=== PATIENT | female | born 1990 | race Two or more races ===

== ENCOUNTER 2016-05-19 03:10 | Emergency (ER) | payer SELFPAY ==
[2016-05-19] MEDS ORDERED: PRED50TA PO (13:38)
[2016-05-19] MEDS ORDERED: DIPH25CA58 PO (13:38)
== END 2016-05-19 03:51 | disposition left against medical advice (07) ==
LOC: ER 03:10
DX: R21 Rash and other nonspecific skin eruption (principal); L29.9 Pruritus, unspecified; Z53.21 Procedure and treatment not carried out due to patient leaving prior to being seen by health care provider

== ENCOUNTER 2016-05-19 11:24 | Emergency (ER) | payer SELFPAY ==
[~2016-05-19] VITALS: Ht 152.4 cm; Wt 72.6 kg
[2016-05-19 12:52] VITALS: BP 125/77
[2016-05-19] MEDS ORDERED: PRED50TA PO (13:38)
[2016-05-19] MEDS ORDERED: DIPH25CA58 PO (13:38)
--- NOTE | 2016-05-19 13:38 | PHYS DOC ---
Past Medical History Past Medical History: No Pertinent History Past Surgical History: No Surgical History Alcohol Use: None Drug Use: None Adult General Chief Complaint Chief Complaint: SKIN RASH/ABSCESS HPI HPI Patient is a 25 year old female who presents with rash. Patient reports that since yesterday morning she has had very itchy rash to her left face and abdomen. Rash started after she had spent the night at a friend's house, however no clear inciting event or new exposures (she denies any new soap, detergent, clothes, medications, food, pets, etc.). She came to the ED yesterday but left without being seen due to the wait. Patient has not taken anything for symptoms. No other acute complaints. Review of Systems Review of Systems Constitutional: Denies fever or chills Respiratory: Denies cough or shortness of breath Cardiovascular: Denies chest pain GI: Denies abdominal pain, nausea, vomiting, or diarrhea Musculoskeletal: Denies back pain or joint pain Skin: Rash to face and abdomen Neurologic: Denies headache, focal weakness or sensory changes Current Medications Current Medications Current Medications Medications (Trade) Dose Ordered Sig/Leon Start Time Stop Time Status Last Admin Dose Admin Diphenhydramine HCl (Benadryl) 50 mg 1X ONCE 05/19/16 13:45 05/19/16 13:45 DC 05/19/16 13:38 50 MG Prednisone (Prednisone) 50 mg 1X ONCE 05/19/16 13:45 05/19/16 13:45 DC 05/19/16 13:38 50 MG Allergies Allergies Allergies Coded Allergies Type Severity Reaction Last Updated Verified No Known Drug Allergies 05/19/16 No Physical Exam Physical Exam Constitutional: Well developed, well nourished, no acute distress, non-toxic appearance HENT: Normocephalic, atraumatic, bilateral external ears normal; urticarial rash mostly confined to L side of face; no oropharyngeal swelling, airway widely patent Neck: No stridor Eyes: EOMI, conjunctiva normal, no discharge Cardiovascular: Heart rate normal, regular rhythm, no murmur Lungs & Thorax: Bilateral breath sounds clear to auscultation Abdomen: Bowel sounds normal, soft, non-distended, no TTP Skin: Warm, dry. Urticarial rash to lower abdomen b/l Extremities: No obvious deformity, no edema Neurologic: Alert and oriented X 3, no gross deficits noted Current Patient Data Vital Signs Vital Signs Date Time Temp Pulse Resp B/P Pulse Ox O2 Delivery O2 Flow Rate FiO2 05/19/16 12:52 97.7 93 20 99 Room Air 97.7 EKG EKG [] Radiology/Procedures Radiology/Procedures [] Course & Med Decision Making Course & Med Decision Making Pertinent Labs and Imaging studies reviewed. (See chart for details) Patient is 25 year old female who presents with rash to face and abdomen. Appears urticarial, unable to determine what caused the reaction. No airway involvement, only skin rash. Will treat with benadryl and prednisone in ED. I will also write rx for same for patient to take over next few days. I discussed being aware of any exposure that causes a reaction, and if she notices something then to avoid it. Given instructions for follow up and return precautions. Dragon Disclaimer Dragon Disclaimer This electronic medical record was generated, in whole or in part, using a voice recognition dictation system. Departure Departure Impression: Primary Impression: Christopher Disposition: HOME, SELF-CARE Condition: STABLE Referrals: NO PCP (PCP) Patient Instructions: Christopher Additional Instructions: Thank you for allowing us to provide care today in the Emergency Department. Take the provided medication as directed. Use caution when taking the Benadryl as it can make you drowsy. Schedule a follow up appointment with a primary care doctor using the provided list. Return promptly to the Emergency Department if you develop any new or concerning symptoms, such as difficulty breathing. Scripts Diphenhydramine Hcl (Benadryl)25 Mg [id number] Mg PO Q6HRS 4 Days Prov:CAMILLA CHAN MD 05/19/16 Prednisone 50 Mg Tablet1 Tab PO DAILY #3 TAB start taking 05/20/16 Prov:CAMILLA CHAN MD 05/19/16 CAMILLA CHAN MD May 19, 2016 13:38
[2016-05-19] MEDS ORDERED: DIPHENHYDRAMINE HCL 25 MG CAPSULE PO ONE (13:45)
[2016-05-19] MEDS ORDERED: PREDNISONE 10 MG TABLET PO ONE (13:45)
== END 2016-05-19 13:44 | disposition home or self-care (01) ==
LOC: ER 11:24
DX: L50.9 Urticaria, unspecified (principal)
CPT/HCPCS: 99283; J7512; Q0163